=== PATIENT | male | born 1960 | race Caucasian/White ===

== ENCOUNTER 2016-10-12 13:33 | Observation (INO) | payer OTHER ==
[~2016-10-12] VITALS: Ht 175.3 cm; Wt 63.5 kg
[~2016-10-12 13:33] MED LIST: CEPH-38 PO; CEPH500C PO; HYDR-2997 PO; LISI20TA PO
[2016-10-12] MEDS ORDERED: RX-NITROGLYCERIN 0.4 MG TAB BTL 25'S SL ONE (13:43)
[2016-10-12] MEDS ORDERED: ASPIRIN 81 MG CHEW (CHILDREN'S ASA) ONE (13:43)
[2016-10-12] MEDS ORDERED: IBUP-1779 PO (14:04)
[2016-10-12 14:06] LABS: BASOPHILS % (AUTO) 0 % (0-10); EOSINOPHILS # (AUTO) 0.1 10^3/uL (0.0-0.3); EOSINOPHILS % (AUTO) 1 % (0-10); LYMPHOCYTES % (AUTO) 17 % (12-44); MEAN CORPUSCULAR HEMOGLOBIN 31 PG (25-34); MEAN CORPUSCULAR HGB CONC 34 G/DL (32-36); MEAN CORPUSCULAR VOLUME 91 FL (80-99); MEAN PLATELET VOLUME 10.2 FL (7.4-10.4); MONOCYTES # (AUTO) 1.2 X 10^3 (0.0-1.0); MONOCYTES % (AUTO) 10 % (0-12); NEUTROPHILS # (AUTO) 8.5 X 10^3 (1.8-7.8); NEUTROPHILS % (AUTO) 72 % (42-75); PLATELET COUNT 292 10^3/uL (130-400); RED BLOOD COUNT 5.13 10^6/uL (4.35-5.85); RED CELL DISTRIBUTION WIDTH 14.4 % (10.0-14.5); WHITE BLOOD COUNT 11.7 10^3/uL (4.3-11.0)
[2016-10-12 14:20] LABS: ALANINE AMINOTRANSFERASE 35 U/L (0-55); ALBUMIN 4.5 G/DL (3.2-4.5); ANION GAP 11 MMOL/L (5-14); ASPARTATE AMINO TRANSFERASE 39 U/L (5-34); BILIRUBIN,TOTAL 0.9 MG/DL (0.1-1.0); BLOOD UREA NITROGEN 7 MG/DL (7-18); BUN/CREATININE RATIO 7; CALCIUM 9.9 MG/DL (8.5-10.1); CARBON DIOXIDE 26 MMOL/L (21-32); CHLORIDE 99 MMOL/L (98-107); CREATININE SERUM 1.06 MG/DL (0.60-1.30); GFR ESTIMATED > 60; GLUCOSE 90 MG/DL (70-105); POTASSIUM 4.1 MMOL/L (3.6-5.0); SODIUM 136 MMOL/L (135-145); TOTAL PROTEIN 7.9 G/DL (6.4-8.2)
--- NOTE | 2016-10-12 14:22 | ED Chest Pain ---
General Chief Complaint: Chest Pain Stated Complaint: CHEST PAIN Nursing Triage Note: pt reports chest pain starting yesterday with blurred vision, soa, and had to sit down. pt reports today chest pain is still there but all other symtoms have subsided. pt amb into exam room without difficulty Nursing Sepsis Screen: No Definite Risk Source: patient Exam Limitations: no limitations History of Present Illness Time seen by provider: 14:18 Initial Comments The patient is a 56-year-old white male his family is known to me. He was sent from [facility] after he presented there with a chief complaint of chest pain. He was noted to be quite hypertensive with a systolic in the 200s and a did not diastolic in the mid 100s. He has been known to be hypertensive for some time but has not taken his medications in at least 4 years. The pain began yesterday and included shortness of breath and dizziness. The shortness of breath and dizziness have resolved but he continues to have chest pain. He became concerned about this as his father who was also hypertensive and of a ruptured aneurysm some years ago. In addition he smokes. His cholesterol status is not known. Timing/Duration: 24 hours Severity/Quality: moderate Location: central Radiation: no radiation Activities at Onset: none Associated Symptoms: dizziness, shortness of breath Allergies and Home Medications Allergies Coded Allergies: No Known Drug Allergies (Unverified , 03/07/11) Home Medications Ibuprofen 400 Mg Tablet, 400 MG PO Q6H PRN for PAIN, (Reported) Review of Systems Constitutional: see HPI EENTM: Other Respiratory: Other Cardiovascular: Chest Pain, Lightheadedness Genitourinary: No Symptoms Reported Skin: no symptoms reported Psychiatric/Neurological: No Symptoms Reported Endocrine: No Symptoms Reported Past Yznaxxc-Kwcmum-Qxmyqc Hx Patient Social History Alcohol Use: Regular Use Recreational Drug Use: Yes Drug of Choice: Marijuana Smoking Status: Current Everyday Smoker Type Used: Cigarettes 2nd Hand Smoke Exposure: Yes Recent Foreign Travel: No Contact w/Someone Who Travel: No Recent Infectious Disease Expo: No Immunizations Up To Date Tetanus Booster (TDap): More than 5yrs Seasonal Allergies Seasonal Allergies: No Cardiovascular Cardiac Disorders: Hypertension Physical Exam Vital Signs Vital Sign - Last 12Hours 10/12/16 13:38 Temp 99.1 Pulse 93 Resp 20 B/P (MAP) 218/144 Pulse Ox 98 O2 Delivery Room Air Capillary Refill : Less Than 3 Seconds General Appearance: No Apparent Distress, WD/WN HEENT: Normal ENT Inspection Neck: Full Range of Motion, Normal Inspection, Non Tender Respiratory: Chest Non Tender, Lungs Clear, Normal Breath Sounds, No Accessory Muscle Use, No Respiratory Distress Cardiovascular: Regular Rate, Rhythm, No Edema, No Gallop, No JVD, No Murmur, Normal Peripheral Pulses Gastrointestinal: Normal Bowel Sounds, No Organomegaly, No Pulsatile Mass, Non Tender Extremity: Normal Capillary Refill, Normal Inspection, Normal Range of Motion, Non Tender, No Calf Tenderness, No Pedal Edema Neurologic/Psychiatric: Alert, Oriented x3, No Motor/Sensory Deficits, Normal Mood/Affect Skin: Normal Color, Warm/Dry Progress/Results/Core Measures Results/Orders Lab Results Laboratory Tests Test 10/12/16 13:42 Range/Units White Blood Count 11.7 H 4.3-11.0 10^3/uL Red Blood Count 5.13 4.35-5.85 10^6/uL Hemoglobin 16.0 13.3-17.7 G/DL Hematocrit 47 40-54 % Mean Corpuscular Volume 91 80-99 FL Mean Corpuscular Hemoglobin 31 25-34 PG Mean Corpuscular Hemoglobin Concent 34 32-36 G/DL Red Cell Distribution Width 14.4 10.0-14.5 % Platelet Count 292 130-400 10^3/uL Mean Platelet Volume 10.2 7.4-10.4 FL Neutrophils (%) (Auto) 72 42-75 % Lymphocytes (%) (Auto) 17 12-44 % Monocytes (%) (Auto) 10 0-12 % Eosinophils (%) (Auto) 1 0-10 % Basophils (%) (Auto) 0 0-10 % Neutrophils # (Auto) 8.5 H 1.8-7.8 X 10^3 Lymphocytes # (Auto) 2.0 1.0-4.0 X 10^3 Monocytes # (Auto) 1.2 H 0.0-1.0 X 10^3 Eosinophils # (Auto) 0.1 0.0-0.3 10^3/uL Basophils # (Auto) 0.0 0.0-0.1 10^3/uL Sodium Level 136 135-145 MMOL/L Potassium Level 4.1 3.6-5.0 MMOL/L Chloride Level 99 98-107 MMOL/L Carbon Dioxide Level 26 21-32 MMOL/L Anion Gap 11 5-14 MMOL/L Blood Urea Nitrogen 7 7-18 MG/DL Creatinine 1.06 0.60-1.30 MG/DL Estimat Glomerular Filtration Rate > 60 BUN/Creatinine Ratio 7 Glucose Level 90 70-105 MG/DL Calcium Level 9.9 8.5-10.1 MG/DL Total Bilirubin 0.9 0.1-1.0 MG/DL Aspartate Amino Transf (AST/SGOT) 39 H 5-34 U/L Alanine Aminotransferase (ALT/SGPT) 35 0-55 U/L Alkaline Phosphatase 65 40-136 U/L Troponin I < 0.30 <0.30 NG/ML Total Protein 7.9 6.4-8.2 G/DL Albumin 4.5 3.2-4.5 G/DL My Orders Orders - JENNIFER NUNO MD Rx-Nitroglycerin Sl Tabs (Rx-Nitrostat S (10/12/16 13:43) Aspirin Chewable Tablet (Baby Aspirin Ch (10/12/16 13:43) Cbc With Automated Diff (10/12/16 13:59) Comprehensive Metabolic Panel (10/12/16 13:59) Troponin I (10/12/16 13:59) Vital Signs/I&O Vital Sign - Last 12Hours 10/12/16 13:38 Temp 99.1 Pulse 93 Resp 20 B/P (MAP) 218/144 Pulse Ox 98 O2 Delivery Room Air Blood Pressure Mean: 168 Departure Communication Progress Notes 1508 blood pressure remains quite high. Laboratory including troponin is normal. Cardiogram from [facility] was reviewed and shows no acute abnormality. Chest x-ray as interpreted by me shows no clear abnormality either. Given the degree of hypertension in the family history it is recommended that he stay to initiate treatment and to complete cardiac analyzer series. Impression Impression: Primary Impression: accelerated hypertension Disposition: ADMITTED INPATIENT Condition: Stable Decision to Admit Reason: Admit from ER (General) Decision to Admit/Date: Oct 12, 2016 Time/Decision to Admit Time: 15:09 Departure-Patient Inst. Referrals: TIFFANY LITTLE MD (PCP/Family) Primary Care Physician JENNIFER NUNO MD Oct 12, 2016 14:22
[2016-10-12 14:27] LABS: TROPONIN I < 0.30 NG/ML (<0.30)
[2016-10-12] MEDS ORDERED: NITROGLYCERIN SUBLINGUAL 0.4 MG TAB (NITROSTAT) SL ONE (15:15)
[2016-10-12] MEDS ORDERED: meTOprolol TARTRATE 50 MG (LOPRESSOR) TAB PO ONE (15:15)
[2016-10-12] MEDS: meTOprolol TARTRATE 50 MG (LOPRESSOR) TAB PO SCH ×2 (16:36→21:04)
[2016-10-12 16:45] VITALS: BP 197/115
[2016-10-12] MEDS ORDERED: NITROGLYCERIN SUBLINGUAL 0.4 MG TAB (NITROSTAT) SL PRN (16:45)
[2016-10-12 17:00] VITALS: BP 203/122
[2016-10-12] MEDS: NICOTINE 21 MG (NICODERM) PATCH TD SCH (17:52)
[2016-10-12 18:00] VITALS: BP 165/93
[2016-10-12 20:00] VITALS: BP 156/99
[2016-10-13] VITALS: BP 155/94
[2016-10-13 04:00] VITALS: BP 154/92
--- NOTE | 2016-10-13 07:41 | Consultation-Cardiology ---
HPI-Cardiology Cardiology Consultation Date of Consultation 10/13/16 Date of Admission Indication: chest pain, hypertension HPI 56 years old gentleman with history of hypertension the remote past. Patient reported that for the past few days he has been having increasing congestion and shortness of breath with cough. He went to the [facility] and noted to have severe hypertension, he reported 2 episodes of chest pain described as dull in nature and the retrosternal area and left side of his chest associated with feeling lightheaded and dizzy and blacking out. Patient came into the emergency room started on metoprolol and currently laying down in bed feeling better. He had some dyspnea on exertion, he has family history of ruptured aneurysm and he was concerned about his condition. Home Medications & Allergies Allergies: Coded Allergies: No Known Drug Allergies (Unverified , 03/07/11) Home Medication List Reviewed: Yes does not take any medication TCG-Ppivxp-Txxzhm Hx Patient Social History Marital Status: Employed/Student: employed, self-employed Alcohol Use: Regular Use Recreational Drug Use: Yes Drug of Choice: Marijuana Smoking Status: Current Everyday Smoker Type Used: Cigarettes 2nd Hand Smoke Exposure: Yes Recent Foreign Travel: No Recent Infectious Disease Expo: No Physical Abuse Screen: No Sexual Abuse: No Immunizations Up To Date Tetanus Booster (TDap): More than 5yrs Past Medical History hypertension Family Medical History Family History: Cardiovascular disease 19 FATHER Hypertension 19 FATHER 19 MOTHER Constitutional: see HPI, dizziness, malaise EENTM: no symptoms reported, see HPI Respiratory: see HPI, cough, dyspnea on exertion, No hemoptysis, No orthopnea, phlegm, short of breath, No stridor, No wheezing, No other Cardiovascular: see HPI, chest pain, No edema, No Hx of Intervention, No palpitations, No syncope, No vascular heart diseas, No other Gastrointestinal: no symptoms reported, see HPI Genitourinary: no symptoms reported, see HPI Musculoskeletal: no symptoms reported, see HPI Skin: no symptoms reported, see HPI Psychiatric/Neurological: No Symptoms Reported, See HPI Reviewed Test Results Reviewed Test Results Lab Laboratory Tests Test 10/12/16 13:42 10/12/16 19:31 Range/Units White Blood Count 11.7 H 4.3-11.0 10^3/uL Red Blood Count 5.13 4.35-5.85 10^6/uL Hemoglobin 16.0 13.3-17.7 G/DL Hematocrit 47 40-54 % Mean Corpuscular Volume 91 80-99 FL Mean Corpuscular Hemoglobin 31 25-34 PG Mean Corpuscular Hemoglobin Concent 34 32-36 G/DL Red Cell Distribution Width 14.4 10.0-14.5 % Platelet Count 292 130-400 10^3/uL Mean Platelet Volume 10.2 7.4-10.4 FL Neutrophils (%) (Auto) 72 42-75 % Lymphocytes (%) (Auto) 17 12-44 % Monocytes (%) (Auto) 10 0-12 % Eosinophils (%) (Auto) 1 0-10 % Basophils (%) (Auto) 0 0-10 % Neutrophils # (Auto) 8.5 H 1.8-7.8 X 10^3 Lymphocytes # (Auto) 2.0 1.0-4.0 X 10^3 Monocytes # (Auto) 1.2 H 0.0-1.0 X 10^3 Eosinophils # (Auto) 0.1 0.0-0.3 10^3/uL Basophils # (Auto) 0.0 0.0-0.1 10^3/uL Sodium Level 136 135-145 MMOL/L Potassium Level 4.1 3.6-5.0 MMOL/L Chloride Level 99 98-107 MMOL/L Carbon Dioxide Level 26 21-32 MMOL/L Anion Gap 11 5-14 MMOL/L Blood Urea Nitrogen 7 7-18 MG/DL Creatinine 1.06 0.60-1.30 MG/DL Estimat Glomerular Filtration Rate > 60 BUN/Creatinine Ratio 7 Glucose Level 90 70-105 MG/DL Calcium Level 9.9 8.5-10.1 MG/DL Total Bilirubin 0.9 0.1-1.0 MG/DL Aspartate Amino Transf (AST/SGOT) 39 H 5-34 U/L Alanine Aminotransferase (ALT/SGPT) 35 0-55 U/L Alkaline Phosphatase 65 40-136 U/L Troponin I < 0.30 < 0.30 <0.30 NG/ML Total Protein 7.9 6.4-8.2 G/DL Albumin 4.5 3.2-4.5 G/DL Physical Exam Vital Signs Vital Sign - Last 12Hours 10/12/16 10/12/16 13:38 16:23 Temp 99.1 Pulse 93 Resp 20 B/P (MAP) 218/144 Pulse Ox 98 O2 Delivery Room Air O2 Flow Rate 2.00 Capillary Refill : Less Than 3 Seconds General Appearance: No Apparent Distress, WD/WN Eyes: Bilateral Eye EOMI, Bilateral Eye Normal Inspection, Bilateral Eye PERRL HEENT: PERRL/EOMI, TMs Normal, Normal ENT Inspection, Pharynx Normal Neck: Full Range of Motion, Normal Inspection, Non Tender, Supple, Carotid Bruit Respiratory: Chest Non Tender, Normal Breath Sounds, No Accessory Muscle Use, No Respiratory Distress, Crackles, Wheezing Cardiovascular: Regular Rate, Rhythm, No Edema, No Gallop, No JVD, No Murmur, Normal Peripheral Pulses Gastrointestinal: Normal Bowel Sounds, No Organomegaly, No Pulsatile Mass, Non Tender, Soft Back: Normal Inspection, No CVA Tenderness, No Vertebral Tenderness Extremity: Normal Capillary Refill, Normal Inspection, Normal Range of Motion, Non Tender, No Calf Tenderness, No Pedal Edema Neurologic/Psychiatric: Alert, Oriented x3, No Motor/Sensory Deficits, Normal Mood/Affect Skin: Normal Color, Warm/Dry Lymphatic: No Adenopathy A/P-Cardiology Admission Diagnosis Chest pain nonspecific etiology Shortness of breath Hypertensive urgency Reactive airway disease Assessment/Plan Chest pain nonspecific etiology, I did not see any EKG in the chart, I will evaluate EKG, cardiac enzymes has been normal, probably his pain secondary to hypertension. Blood pressure is slightly better. Started on Lopressor and I will add Norvasc. Will require workup which will be done as an outpatient. Shortness of breath for the last week, patient have active wheezing, I'll proceed with initiating him on bronchodilator. Discussed in length about smoking cessation. I will evaluate chest x-ray Hypertensive urgency, blood pressure is better and he is feeling better, had hypertensive encephalopathy yesterday and the day before with blood pressure over 200 systolic and over 100 diastolic, started on Lopressor 50 mg twice daily in the emergency room, I will add Norvasc 5 mg daily, evaluate echocardiogram, I recommend monitoring his blood pressure as an outpatient. Tobaccoism, educated in length on smoking cessation. History of marijuana use. Educated on avoiding illicit drugs. Family history of aneurysm Clinical Quality Measures AMI/AHF: ASA po Prior to arrival: No DVT/VTE Risk/Contraindication: Risk Factor Score Per Nursin RFS Level Per Nursing on Admit: 2=Moderate JEF ANAND MD Oct 13, 2016 07:41
[2016-10-13] MEDS ORDERED: RT-ALBUTEROL/IPRATROPIUM 3 ML (DUONEB) VIAL IH SCH (07:45)
[2016-10-13 07:51] VITALS: BP 159/100
[2016-10-13] MEDS: meTOprolol TARTRATE 50 MG (LOPRESSOR) TAB PO SCH (08:21)
[2016-10-13] MEDS: NICOTINE 21 MG (NICODERM) PATCH TD SCH (08:22)
--- NOTE | 2016-10-13 08:41 | Short Stay Summary-Hospitalist ---
HPI History of Present Illness: HPI/Chief Complaint 56yoM who presented to the ED yesterday for HTN. He had associated symptoms of CP, dizziness, and confusion. Admitted for HTN Emergency with BP 218/144. Source: patient, family, RN/MD, RN notes reviewed Exam Limitations: no limitations Date Seen 10/13/16 Attending Physician Rhianna Corey DO PCP No,Local Physician Referring Physician Date of Admission Oct 12, 2016 at 15:21 Home Medications & Allergies Home Medications Reviewed patient Home Medication Reconciliation Form Allergies Allergies Coded Allergies No Known Drug Allergies (Unverified03/07/11) Past Qlczhqk-Eheyaz-Dhovmp Hx Patient Social History Marrital Status: Employed/Student: employed, self-employed Alcohol Use: Regular Use Recreational Drug Use: Yes Drug of Choice: Marijuana Smoking Status: Current Everyday Smoker Cigaretts per day: 30 Type Used: Cigarettes 2nd Hand Smoke Exposure: Yes Physical Abuse Screen: No Sexual Abuse: No Recent Foreign Travel: No Contact w/other who traveled: No Recent Infectious Disease Expo: No Immunizations Up To Date Tetanus Booster (TDap): More than 5yrs Seasonal Allergies Seasonal Allergies: Yes Surgeries HX Surgeries: No Respiratory Hx Respiratory Disorders: No Cardiovascular Cardiac Disorders: Hypertension Neurological Hx Neurological Disorders: No Genitourinary Hx Genitourinary Disorders: No Gastrointestinal Hx Gastrointestinal Disorders: No HEENT HX ENT Disorders: No Cancer Hx Cancer: No Family Medical History Family Hx: Cardiovascular disease 19 FATHER Hypertension 19 FATHER 19 MOTHER Review of Systems Constitutional: no symptoms reported EENTM: nose congestion Respiratory: short of breath, wheezing Cardiovascular: chest pain Gastrointestinal: no symptoms reported Genitourinary: no symptoms reported Musculoskeletal: no symptoms reported Skin: no symptoms reported Psychiatric/Neurological: Other (blacking out yesterday) Physical Exam Physical Exam Vital Signs Vital Sign - Last 12Hours 10/12/16 10/12/16 13:38 16:23 Temp 99.1 Pulse 93 Resp 20 B/P (MAP) 218/144 Pulse Ox 98 O2 Delivery Room Air O2 Flow Rate 2.00 Capillary Refill : Less Than 3 Seconds General Appearance: No Apparent Distress, WD/WN, Thin Eyes: Bilateral Eye PERRL HEENT: PERRL/EOMI, Other (hearing grossly normal) Neck: Full Range of Motion, Supple, Other (No JVD) Respiratory: Wheezing Cardiovascular: Regular Rate, Rhythm, No Edema, No Murmur Gastrointestinal: Normal Bowel Sounds, Non Tender, Soft Rectal: Deferred Extremity: Non Tender, No Pedal Edema Neurologic/Psychiatric: Alert, Oriented x3 Skin: Other (hair loss below calves) Results Results/Procedures Lab Laboratory Tests 10/12/16 13:42 Short Stay Diagnosis Discharge Diagnosis-Short Stay Admission Diagnosis HTN Emergency Final Discharge Diagnosis HTN Emergency Conclusion Plan HTN Emergency - Emergency resolved and BP under better control on dual agents - Given voltage criteria for LVH ekg, echo ordered - Pending results will DC home - lopressor 50mg BID and Amlodipine 5mg daily - Switch to JABIER if CHF found on echo for BB and JABIER - Needs 81mg ASA as well Wheezing - No hypoxia, but likely has baseline COPD given smoking history - On no inhalers as outpatient, will start on Albuterol prn - Advised follow up, will need Spirometry. Tobaccoism - Recommended cessation - Nicotine patch Dispo: If echo normal, DC home today. Advised strongly on need to follow up with Dr. Beverly and to establish with PCP. States he will follow with the health department. Will need abd usg to screen for AAA given family history and smoking history. Fortunato Marino MD Clinical Quality Measures AMI/AHF: ASA po Prior to arrival: No DVT/VTE Risk/Contraindication: Risk Factor Score Per Nursin RFS Level Per Nursing on Admit: 2=Moderate FORTUNATO MARINO MD Oct 13, 2016 08:41
[2016-10-13] MEDS ORDERED: NICOTINE PATCH REMOVAL TP SCH (09:00)
[2016-10-13] MEDS ORDERED: amLODIPine 5 MG (NORVASC) TAB PO SCH (09:00)
[2016-10-13] MEDS ORDERED: IPRA3AMP IH (09:23)
[2016-10-13] MEDS ORDERED: METO50TA2 PO (09:23)
[2016-10-13] MEDS ORDERED: AMLO5TAB2 PO (09:23)
--- NOTE | 2016-10-13 09:25 | Discharge Inst-Simple/Standard ---
Discharge Inst-Standard Patient Instructions/Follow Up Plan of Care/Instructions/FU: Griselda establish with a primary care doctor and follow up with 1-2 weeks of this hospital stay. It is also important to follow up with Dr. Beverly after this stay. Lastly continue to work on efforts to quit smoking. Activity as Tolerated: Yes Discharge Diet: Low Sodium Diet, Cardiac Diet Return to The Hospital For: Recurrent chest pain, syncope, confusion. Planned Outpatient Orders/Ref. Pneu Vac Indicated: Yes FORTUNATO KLINE MD Oct 13, 2016 09:25
[2016-10-13] MEDS ORDERED: ASPI-586 PO (09:27)
--- NOTE | 2016-10-13 10:04 | Diagnostic Imaging Report ---
INDICATION: Chest pain. PA and lateral views show the lungs to be well-aerated. The heart is upper limits of normal. The pulmonary vasculature is normal. There are no infiltrates present. There does appear to be mild blunting of left costophrenic angle suggesting a small left basilar effusion. Right costophrenic angle is sharp. There is no hilar adenopathy. No pneumothorax. There is question of a nondisplaced fracture of the left 10th rib laterally. IMPRESSION: 1. Heart size upper limits of normal. 2. Small left basilar pleural effusion. 3. Question of nondisplaced left 10th rib fracture. Clinical correlation. Dictated by: Dictated on workstation # [id number]
[2016-10-13 12:00] VITALS: BP 173/101
[2016-10-13 13:28] VITALS: BP 149/90
--- NOTE | 2016-10-13 17:30 | ECHOCARDIOGRAPHY REPORT ---
DATE OF SERVICE: 10/13/2016 PROCEDURE: TWO-DIMENSIONALECHOCARDIOGRAM REFERRING PHYSICIAN: Rhianna Corey DO INDICATION: Chest pain. MEASUREMENTS: LVID end diastolic 4.9. IVS thickness 1.1. LVPW thickness 1.1. Left atrial diameter 3.7. Ejection fraction 50%. FINDINGS: 1. Technical quality is good. 2. The left ventricle is normal in size with mild left ventricular hypertrophy noted diffusely. Systolic function appeared to be normal. Estimated ejection fraction is 50%. Subtle hypokinesia at the basal inferior wall. 3. The left atrium is normal in size. No clot or thrombus were seen within the left atrium. 4. The right atrium and right ventricle are normal in size. No clot or thrombus were seen within the right side. 5. Mitral valve is normal in morphology with mild mitral regurgitation noted by carotid Doppler flow. No mitral valve prolapse. No mitral valve stenosis. Doppler across the mitral valve showed EA reversal, which is suggestive of diastolic dysfunction. 6. Aortic valve is functioning normally. The leaflets were not well visualized. There is no significant aortic valve stenosis or regurgitation seen. 7. Tricuspid valve is normal in morphology with trace tricuspid regurgitation noted by color Doppler flow. Doppler across the tricuspid valve estimated pulmonary artery pressure of 22 plus right atrial pressure. 8. Pulmonic valve is functioning normally. 9. No pericardial effusion. CONCLUSION: 1. Mild left ventricular hypertrophy noted diffusely with normal systolic function, subtle hypokinesia at the base of the inferior wall. Systolic function is preserved. Estimated ejection fraction is 50%. Diastolic dysfunction is suggested by Doppler. 2. Mild mitral regurgitation. 3. Trace tricuspid regurgitation. 4. Estimated pulmonary artery pressure of 30 mmHg. Job ID: [id number] DocumentID: [id number] Dictated Date: 10/13/2016 11:44:10 Lead Assembler Date: 10/13/2016 13:34:59 Dictated By: JEF ANAND MD
== END 2016-10-13 09:33 | disposition home or self-care (01) ==
LOC: EDUNIT# 13:33 → ER 13:36 → ICU 15:21 → UNDOADMOB 15:21 → ICU 15:31 → 4TH 15:31 → ICU 16:30 → UNDODISOB 10-13 13:32
PROVIDERS: ADMIT Internal Medicine; ATTEND Internal Medicine
DX: R07.9 Chest pain, unspecified (principal); I10 Essential (primary) hypertension; F17.210 Nicotine dependence, cigarettes, uncomplicated; I16.0 Hypertensive urgency; I67.4 Hypertensive encephalopathy; R06.2 Wheezing; R55 Syncope and collapse; R41.0 Disorientation, unspecified
CPT/HCPCS: 36415; 71020; 80053; 84484; 85025; 93005; 93306; 94640; 94760; G0378

== ENCOUNTER → 2017-05-22 | Outpatient (CLI) | payer SELFPAY ==
[~2017-05-22] MED LIST changes: +AMLO5TAB2 PO; +ASPI-586 PO; +CATHETER FLUSH 10 ML SYR IV PRN; +IBUP-1779 PO; +IPRA3AMP IH; +METO50TA15 PO
[2017-05-22 09:22] VITALS: BP 214/108
[2017-05-22 09:27] VITALS: BP 210/97
[2017-05-22 09:31] VITALS: BP 201/111
--- NOTE | 2017-05-22 22:33 | STRESS TEST ---
DATE OF SERVICE: 05/22/2017 EXERCISE MYOVIEW STRESS TEST REPORT Baseline heart rate is 60. Baseline blood pressure 153/93. Baseline EKG is sinus rhythm with no ischemic changes. SUMMARY: The patient was injected with 10.67 mCi of technetium-99 Myoview and the resting images were obtained. Then, the patient started exercising with a baseline heart rate, blood pressure and EKG mentioned above. He was able to exercise for a total of 4 minutes 30 seconds on standard Aman protocol. With peak exercise level, EKG was showing nondiagnostic changes in leads II, III, aVF, V4 and V5, blood pressure was 214/108. During recovery, heart rate and blood pressure returned to baseline. EKG returned to baseline. The resting and stress images were reviewed and compared in the short axis, horizontal long axis and vertical long axis views. Review of the images showed diaphragmatic attenuation with fixed defect involving the whole inferior wall and inferoseptum with subtle reversibility. SSS is 12. SDS 2. TID value 1.09. On the gated images, the left ventricle appeared to be dilated with diffuse left ventricular hypokinesia more pronounced at the inferior wall. Calculated ejection fraction 31%. CONCLUSION: 1. Fair exercise tolerance. A total of 4 minutes 30 seconds on standard Aman protocol, total of 6.4 METS achieving 96% of maximum expected heart rate. 2. Baseline hypertension with severe hypertensive response to exercise returned to baseline during recovery. 3. Diaphragmatic attenuation with fixed defect involving the whole inferior wall and inferoseptum with mild joan-infarct ischemia. 4. Prominent left ventricle with diffuse left ventricular hypokinesia, more pronounced at the inferior wall and inferolateral wall and inferoseptum. Calculated ejection fraction 31%. Job ID: [id number] DocumentID: [id number] Dictated Date: 05/22/2017 16:01:34 Marketing Communication Manager Date: 05/22/2017 19:02:26 Dictated By: JEF ANAND MD
== END ==
LOC: CARD 07:14
PROVIDERS: ATTEND Internal Medicine Cardiovascular Disease
DX: R07.9 Chest pain, unspecified (principal)
CPT/HCPCS: 78452; 93017

== ENCOUNTER 2017-06-19 06:35 | Day surgery (SDC) | payer SELFPAY ==
[~2017-06-19] VITALS: Ht 175.3 cm; Wt 65.8 kg
[2017-06-19] VITALS (11 sets, daily range): BP systolic 163–192; BP diastolic 90–113
[~2017-06-19 06:35] MED LIST changes: -CATHETER FLUSH 10 ML SYR IV PRN
--- OUTSIDE RECORDS SUMMARY | 2017-06-19 06:40 | XMS REPORT ---
Author Author SAURABH SIMPSON Organization [facility] Address [address] [place] [address] Care Team Providers Care Repair Table Operator Name Role Phone SAURABH SIMPSON Unavailable PROBLEMS Type Condition ICD9-CM Code QZX03-[id number] Code Onset Dates Condition Status SNOMED Code Problem Tobacco abuse counseling Z71.6 Active 353602669 Problem Tobacco abuse Z72.0 Active 343729932 Problem Essential hypertension I10 Active 54155983 Problem Coronary artery disease involving [place] coronary artery of [place] heart without angina pectoris I25.10 Active 7987800990175 Problem ETOH abuse F10.10 Active 79178714 ALLERGIES No Known Allergies SOCIAL HISTORY Never Assessed PLAN OF CARE Activity Details Follow Up prn Reason: VITAL SIGNS Height 69 in 2016-10-12 Weight 135.6 lbs 2016-10-12 Temperature 98.6 degrees Fahrenheit 2016-10-12 Heart Rate 86 bpm 2016-10-12 Respiratory Rate 22 2016-10-12 BMI 20.02 kg/m2 2016-10-12 Blood pressure systolic 202 mmHg 2016-10-12 Blood pressure diastolic 128 mmHg 2016-10-12 MEDICATIONS Medication Instructions Dosage Frequency Start Date End Date Duration Status Ibuprofen 800 MG Orally Three times a day 1 tablet with food or milk 8h Active RESULTS Name Result Date Reference Range Xray : Chest (IN HOUSE) 2016-10-12 PROCEDURES Procedure Date Ordered Result Body Site EKG, TRACING (IN-HOUSE) 2016-10-12 N/A CHEST X-RAY October 12, 2016 ELECTROCARDIOGRAM, TRACING October 12, 2016 IMMUNIZATIONS No Known Immunizations MEDICAL (GENERAL) HISTORY Type Description Date Medical History hypertension Medical History Myocardial Infarction Hospitalization History ICU [facility] for hypertension 10/12/2016
--- OUTSIDE RECORDS SUMMARY | 2017-06-19 06:40 | XMS REPORT | Continuity of Care Document ---
Author Author [facility] Address Unknown Phone Unavailable Allergies There is no data. Medications There is no data. Problems Date Dx Coded Attending Type Code Diagnosis Diagnosed By 03/20/2012 305.1 TOBACCO ABUSE 03/20/2012 401.1 HYPERTENSION, BENIGN ESSENTIAL 03/20/2012 ZAHIRA JEAN DDS N 305.1 TOBACCO ABUSE 03/20/2012 ZAHIRA JEAN DDS N 401.1 HYPERTENSION, BENIGN ESSENTIAL 06/02/2012 ZAHIRA JEAN DDS N 522.5 PERIAPICAL ABSCESS WITHOUT SINUS Procedures There is no data. Results There is no data. Encounters ACCT No. Visit Date/Time Discharge Status Pt. Type Provider Facility Loc./Unit Complaint [id number] 06/03/2012 13:54:00 06/03/2012 23:59:59 [facility] Outpatient ZHAIRA JEAN DDS N [id number] 03/20/2012 08:23:00 03/20/2012 23:59:59 [facility] Outpatient
[2017-06-19] MEDS ORDERED: LIDOCAINE 1% INJ 50 ML (XYLOCAINE) VIAL ONE (06:48)
[2017-06-19] MEDS ORDERED: HEParin (CATH LAB) 2,000 ML IV ONE (06:48)
[2017-06-19] MEDS ORDERED: NS IV 1000 ML 1,000 ML IV SCH ×2 (06:57→08:45)
[2017-06-19] MEDS ORDERED: LISI-556 PO (07:13)
[2017-06-19] MEDS ORDERED: ASPI-983 PO (07:13)
[2017-06-19] MEDS ORDERED: METO-333 PO (07:13)
[2017-06-19] MEDS ORDERED: AMLO10TA2 PO (07:13)
[2017-06-19 07:14] LABS: BILIRUBIN,URINE NEGATIVE (NEGATIVE); CLARITY,URINE CLEAR; COLOR,URINE YELLOW; GLUCOSE, URINE (UA) NEGATIVE (NEGATIVE); KETONES,URINE NEGATIVE (NEGATIVE); LEUKOCYTE ESTERASE ,URINE 1+ (NEGATIVE); NITRITE,URINE NEGATIVE (NEGATIVE); PH,URINE 6 (5-9); PROTEIN,URINE NEGATIVE (NEGATIVE); UROBILINOGEN,URINE NORMAL (NORMAL)
[2017-06-19 07:14] LABS: MEAN PLATELET VOLUME 10.3 FL (7.4-10.4); RED BLOOD COUNT 4.89 10^6/uL (4.35-5.85); RED CELL DISTRIBUTION WIDTH 14.2 % (10.0-14.5); WHITE BLOOD COUNT 10.9 10^3/uL (4.3-11.0)
[2017-06-19] MEDS ORDERED: LISI10TA2 PO (07:14)
[2017-06-19 07:22] LABS: BACTERIA,URINE NEGATIVE /HPF
[2017-06-19 07:25] LABS: PROTHROMBIN TIME PATIENT 13.1 SEC (12.2-14.7)
[2017-06-19 07:35] LABS: ALANINE AMINOTRANSFERASE 14 U/L (0-55); ALBUMIN 4.1 GM/DL (3.2-4.5); ALKALINE PHOSPHATASE 70 U/L (40-136); BILIRUBIN,TOTAL 0.6 MG/DL (0.1-1.0); BUN/CREATININE RATIO 12; CALCIUM 9.6 MG/DL (8.5-10.1); CARBON DIOXIDE 22 MMOL/L (21-32); CHLORIDE 106 MMOL/L (98-107); CHOLESTEROL 168 MG/DL (< 200); CREATININE SERUM 0.98 MG/DL (0.60-1.30); GFR ESTIMATED > 60; GLUCOSE 98 MG/DL (70-105); HDL CHOLESTEROL 59 MG/DL (40-60); POTASSIUM 4.2 MMOL/L (3.6-5.0); SODIUM 140 MMOL/L (135-145); TOTAL PROTEIN 7.8 GM/DL (6.4-8.2); TRIGLYCERIDES 63 MG/DL (<150); VLDL CHOLESTEROL 13 MG/DL (5-40)
[2017-06-19] MEDS ORDERED: INFLUENZA TRIvalent 2017-2018 0.5 ML/45 MCG SYR IM ONE (07:45)
[2017-06-19] MEDS ORDERED: fentaNYL INJECTION 100 MCG/2 ML AMP ONE (07:56)
[2017-06-19] MEDS ORDERED: MIDAZOLAM 5 MG/5 ML (VERSED) VIAL ONE (07:56)
--- NOTE | 2017-06-19 08:02 | Cardiac Procedure Note-CS/ASA ---
Pre-Procedure Note Pre-Op Procedure Note H&P Reviewed The H&P was reviewed, patient examined and no changes noted. Date H&P Reviewed: Jun 19, 2017 Time H&P Reviewed: 08:02 Conscious Sedation Pre-Proced Time Reviewed: 08:02 ASA Class: 3 Airway Mallampati Classification: ([place] appropriate class) I. II. III, IV Lungs Heart ASA score ASA 1: a normal healthy patient ASA 2: a patient with a mild systemic disease (mid diabetes, controlled hypertension, obesity x ASA 3: a patient with a severe systemic disease that limits activity (angina , COPD, prior Myocardial infarction) ASA 4: a patient with an incapacitating disease that is a constant threat to life (CHF, renal failure) ASA 5: a moribund patient not expected to survive 24 hrs. (ruptured aneurysm) ASA 6: a declared brain patient whose organs are being harvested. For emergent operations, add the letter E after the classification Grade 3 Sedation Plan: Analgesia, Amnesia, Plan communicated to team members, Discussed options with patient/fam, Discussed risks with patient/fam Note The patient is an appropriate candidate to undergo the planned procedure, sedation, and anesthesia. The patient immediately re-assessed prior to indication. JEF ANAND MD Jun 19, 2017 08:02
--- NOTE | 2017-06-19 08:03 | Diagnostic Imaging Report ---
INDICATION: Coronary artery disease FINDINGS: The lungs are hyperexpanded but clear. The heart size and vascularity are within normal limits. Benign calcified hilar and parenchymal granulomatous residua is stable. No failure, effusion or pneumothorax. IMPRESSION: Stable chest. Dictated by: Dictated on workstation # [id number]
[2017-06-19] MEDS ORDERED: PATIENT MAY USE OWN MEDS, ALL PO SCH (08:45)
--- NOTE | 2017-06-19 08:49 | Discharge Inst-Post CATH ---
Discharge Inst-CATH Post Cardiac Cath D/C Inst Follow Up/Plan Appointment with Dr. Beverly's office in 2-4 weeks CARDIAC CATH DISCHARGE INSTRUCTIONS *Hold Metformin for 48 hours post heart cath. ACTIVITY * Go Home directly and rest. * Limit activity of the leg (or wrist if it was used) for 7 days including aerobics, swimming, jogging, bicycling, etc. * Restrict stair-climbing for 7 days if possible, if not, climb up with your non -cath leg, then bring together on the same step. * Avoid lifting, pushing, pulling or excessive movement of the affected extremity for 7 days. * Customary sexual activity may be resumed after 2 days-use caution not to use a position that strains or causes pain to the affected extremity. * No driving for 24 hours. * NO SMOKING. * Avoid straining for bowel movements for 7 days. * Gentle walking on level ground is allowed. * Returning to work will depend on the type of procedure and the results. Your doctor will discuss this with you. CALL YOUR DOCTOR FOR ANY OF THE FOLLOWING: *If bleeding from the puncture site occurs- Apply gentle pressure to site with clean cloth and call your doctor or EMS. * If a knot or lump forms under the skin, increases in size, or causes pain. * If bruising appears to be worsening or moving further down your leg instead of disappearing. * Temperature above 101 F. CARE OF YOUR GROIN INCISION; * Bruising or purple discoloration of the skin near the puncture site is common. * You may shower only, no bathtub bathing for 5 days. Be careful to avoid slipping as your leg may feel stiff. * If a closure device was used on your femoral artery, please see the attached guide regarding care of the device and your leg. * REMOVE the dressing from your groin the next day after your procedure in the shower. CARE OF YOUR WRIST INCISION; * Bruising or purple discoloration of the skin near the puncture site is common. * You may shower. * DO NOT submerge wrist. * Remove dressing in 24 hours. JEF BEVERLY MD Jun 19, 2017 08:49
--- NOTE | 2017-06-19 08:54 | Cardiac Cath Report ---
Cardiac Cath Report Physician (s)/Child Support Specialist (s) Physician JEF ANAND MD Pre-Procedure Diagnosis Pre-Procedure Diagnosis: Coronary artery disease Post-Procedure Note Procedure Start Date: Jun 19, 2017 Name of Procedure: Left heart catheterization. 98952 Left ventriculogram Aortic arch angiogram [id number] Findings/Procedure Note PROCEDURE NOTE: After explaining the procedure to the patient, all pros and cons were explained, all questions were answered. The patient signed the consent and then she was placed on the cardiac catheterization laboratory. The patient was placed on the cardiac catheterization laboratory. Groin was prepped SL fashion local anesthesia was used. Sheath placed in the artery. Amado right and left catheter were used to access the coronary system. Pigtail was used to access the left ventricular cavity. Left ventriculogram was done Aortic arch angiogram was done At the end of the procedure the sheath was removed. Closure device was used FINDINGS: Hemodynamics LV 150/17, end-diastolic pressure of 17 Aorta 165/82 mean of 115 ANATOMY: Left Main is calcified artery with 40-50 percent stenosis nonobstructive disease Left Anterior Descending has mild disease proximally, nonobstructive disease Left Circumflex has 40 percent stenosis at the midportion, at the bifurcation after the obtuse marginal branch there is an area of 50-60 percent stenosis. Right Coronory Artery is dominant artery, totally occluded proximally, getting filled by collaterals from the left system LV Gram is prominent with inferior wall hypokinesia estimated ejection fraction 35 percent Aorta evaluation done with aortic arch angiogram which showed hypertensive changes, mild calcification, origin of the great neck vessels appeared mildly calcified with no obstructive disease CONCLUSION: 1. Ischemic cardiomyopathy with inferior wall hypokinesia to akinesia, estimated ejection fraction 35 percent 2. Total occlusion of the proximal right coronary artery getting filled by collaterals from the left system 3. Calcified left main with 40 percent stenosis, 50-60 percent stenosis at the distal circumflex artery at the bifurcation after the origin of the obtuse marginal branch, mild disease in the LAD 4. Hypertensive changes in the thoracic aorta and aortic arch, no dissection or aneurysm DISCUSSION AND RECOMMENDATION: I will evaluate viability study to the inferior wall, continue to maximize medical therapy Anesthesia Type: Conscious Sedation Estimated blood loss (mL): 10 ml Contrast Amount: 71 ml Total Radiation Dose: 276 mGy Post-Procedure Diagnosis Post-operative diagnosis: Coronary artery disease Congestive heart failure, chronic compensated left ventricular systolic dysfunction, ischemic cardiomyopathy Hypertension Tobaccoism JEF ANAND MD Jun 19, 2017 08:54
[2017-06-19] MEDS ORDERED: lisINopril 5 MG (PRINIVIL) TABLET PO NR (09:45)
[2017-06-19] MEDS ORDERED: amLODIPine 10 MG (NORVASC) TAB PO NR (11:15)
[2017-06-20] MEDS ORDERED: amLODIPine 10 MG (NORVASC) TAB PO SCH (09:00)
== END 2017-06-19 13:25 | disposition home or self-care (01) ==
LOC: CATH 06:35 → SURG 09:07 → CATH 13:25
PROVIDERS: ATTEND Internal Medicine Cardiovascular Disease
DX: I25.10 Atherosclerotic heart disease of native coronary artery without angina pectoris (principal); I25.82 Chronic total occlusion of coronary artery; I11.0 Hypertensive heart disease with heart failure; I50.22 Chronic systolic (congestive) heart failure; I25.5 Ischemic cardiomyopathy; I08.1 Rheumatic disorders of both mitral and tricuspid valves; F17.210 Nicotine dependence, cigarettes, uncomplicated; Z79.82 Long term (current) use of aspirin; Z79.899 Other long term (current) drug therapy
CPT/HCPCS: 36221; 36415; 71045; 80053; 80061; 81000; 85027; 85610; 85730; 87081; 93458

== ENCOUNTER 2021-01-18 16:55 | Emergency (ER) | payer SELFPAY ==
[~2021-01-18] VITALS: Ht 175.3 cm; Wt 59.9 kg
[~2021-01-18 16:55] MED LIST changes: +AMLO-250 PO; +AMLO-251 PO; -AMLO5TAB2 PO; +ASPI-1238 PO; -IPRA3AMP IH; +IPRA3AMP31 IH; +LISI-729 PO; +LISI10TA25 PO; +METO-333 PO
[2021-01-18] MEDS ORDERED: RT-ALBUTEROL/IPRATROPIUM 3 ML (DUONEB) VIAL INH ONE (17:45)
[2021-01-18 17:53] LABS: BASOPHILS % (AUTO) 0 % (0-10); EOSINOPHILS % (AUTO) 0 % (0-10); HEMATOCRIT 46 % (40-54); HEMOGLOBIN 16.3 g/dL (13.3-17.7); LYMPHOCYTES # (AUTO) 1.4 10^3/uL (1.0-4.0); LYMPHOCYTES % (AUTO) 13 % (12-44); MEAN CORPUSCULAR HEMOGLOBIN 31 pg (25-34); MEAN CORPUSCULAR HGB CONC 36 g/dL (32-36); MEAN CORPUSCULAR VOLUME 87 fL (80-99); MEAN PLATELET VOLUME 9.9 fL (9.0-12.2); MONOCYTES # (AUTO) 0.9 10^3/uL (0.0-1.0); MONOCYTES % (AUTO) 8 % (0-12); NEUTROPHILS # (AUTO) 7.9 10^3/uL (1.8-7.8); NEUTROPHILS % (AUTO) 78 % (42-75); PLATELET COUNT 201 10^3/uL (130-400); WHITE BLOOD COUNT 10.2 10^3/uL (4.3-11.0)
--- NOTE | 2021-01-18 17:56 | ED General ---
General Chief Complaint: General Problems/Pain Stated Complaint: HEAD INJURY, SIDE PAIN, CONGESTION Nursing Triage Note: PT AMB TO RM 9 WITH MULTIPLE COMPLAINTS. PT REPORTS THAT HE HAS BEEN SOB X1 WEEK. PT ALSO REPORTS AT 1000 THIS MORNING HE WAS GOING ABOUT HIS DAY USUAL WHEN HE PASSED OUT, FELL TO HIS KNEES, AND THEN FELL THE REST OF THE WAY HITTING HIS HEAD. PT HAS ABRASIONS ON HIS LEFT KNEE, LEFT SHOULDER, LEFT EYEBROW, AND NOW C/O LEFT SIDED ABD PAIN FROM HIS FALL. Source of Information: Patient Exam Limitations: No Limitations (SUHAIL ALCAZAR STUDENT) History of Present Illness Date Seen by Provider: Jan 18, 2021 Time Seen by Provider: 17:20 Initial Comments Pt presents to ED via private conveyance with complaints of problems breathing and L rib pain. He states that his trouble breathing started last week when working outside. He states that he fell earlier today but doesnt remember the event beyond going down onto his knee. Denies prior similar events. He has complaints of L side rib pain 11/24, has taken 400mg Ibuprofen with minimal reli ef. He also takes Amlodipine and Lisinopril for hypertension. He denies fevers, chills, chest pain, nausea, vomiting. Timing/Duration: 1-3 Hours Severity: Moderate Modifying Factors: improves with Movement Associated Systoms: Chest Pain (L rib pain); No Fever/Chills, No Nausea/Vomiting (SUHAIL ALCAZAR STUDENT) Initial Comments I have also interviewed and examined this patient. He has been struggling with shortness of breath for a couple of weeks. He denies any chest pain. Today he had an episode of shortness of breath and ultimately had a syncopal episode resulting in striking his head and left chest on the concrete. He has a contusion on his left brow and left chest wall pain and tenderness. Vital signs are stable. He has no known health problems aside from his hypertension. He does smoke about a pack of cigarettes per day and drinks about a sixpack of beer per day. He does not have any known cardiopulmonary problems. His Covid screen was negative by the time of my interview. (TOMMY VASQUEZ MD) Allergies and Home Medications Allergies Coded Allergies: No Known Drug Allergies (Unverified , 03/07/11) Home Medications Amlodipine Besylate 10 Mg Tablet, 10 MG PO DAILY, (Reported) Aspirin 81 Mg Tablet.dr, 81 MG PO DAILY, (Reported) Azithromycin 250 Mg Tablet, 250 MG PO DAILY Prescribed by: TOMMY ZHANG on 01/18/212027 Lisinopril 10 Mg Tablet, 10 MG PO DAILY, (Reported) Metoprolol Tartrate 25 Mg Tablet, 25 MG PO DAILY, (Reported) Prednisone 20 Mg Tab, 40 MG PO DAILY Prescribed by: TOMMY ZHANG on 01/18/212027 Patient Home Medication List Home Medication List Reviewed: Yes (SUHAIL ALCAZAR) Review of Systems Review of Systems Constitutional: No chills, No fever; other (stated he was lightheaded prior to falling) EENTM: No hearing loss, No vision loss, No mouth pain Respiratory: No cough, No hemoptysis; short of breath, wheezing (L side) Cardiovascular: chest pain (L rib pain 6/10); No edema Gastrointestinal: No abdominal pain, No constipation, No diarrhea Genitourinary: No dysuria, No frequency, No hematuria Musculoskeletal: No back pain, No joint pain Skin: No change in hair/nails; lesions (multiple small abrasions and ecchymosis to L eyebrow, L elbow, nose, upper lip, L knee) Psychiatric/Neurological: Denies Headache, Denies Numbness, Denies Paresthesia (SUHAIL ALCAZAR) All Other Systems Reviewed Negative Unless Noted: Yes (SUHAIL ALCAZAR) Past Yyrqwnv-Iyjwhe-Mdymyk Hx Patient Social History Tobacco Use?: Yes Tobacco type used: Cigarettes Smoking Status: Current Everyday Smoker Substance use?: Yes Substance type: Marijuana Substance frequency: Couple times a week Alcohol Use?: Yes Alcohol type: Beer Alcohol Frequency: Daily Pt feels they are or have been: No (SUHAIL ALCAZAR) Immunizations Up To Date Tetanus Booster (TDap): More than 5yrs First/Initial COVID19 Vaccinat: 12/13/2020 COVID19 Vaccine Eligibility Counselor: [employer] (SUHAIL ALCAZAR) Seasonal Allergies Seasonal Allergies: Yes (SUHAIL ALCAZAR) Past Medical History Surgeries: No Respiratory: No Cardiac: Yes Hypertension Neurological: No Genitourinary: No Gastrointestinal: No Musculoskeletal: No Endocrine: No HEENT: No Cancer: No Psychosocial: No Integumentary: No Blood Disorders: No (SUHAIL ALCAZAR [employer] STUDENT) Family Medical History Cardiovascular disease 19 FATHER Hypertension 19 FATHER 19 MOTHER Physical Exam Vital Signs Vital Signs - First Documented 01/18/21 17:05 Temp 37.0 Pulse 104 Resp 20 B/P (MAP) 114/79 (91) Pulse Ox 99 O2 Delivery Room Air (ALPHONSE SANCHEZ) Vital Signs Capillary Refill : Less Than 3 Seconds (SUHAIL ALCAZAR [employer] STUDENT) Height, Weight, BMI Height: 5'9.00" Weight: 145lbs. 0.0oz. 65.201599vc; 19.00 BMI Method:Stated General Appearance: No Apparent Distress, WD/WN, Thin Eyes: Bilateral Eye Normal Inspection, Bilateral Eye PERRL, Bilateral Eye EOMI HEENT: PERRL/EOMI, TMs Normal, Normal ENT Inspection, Pharynx Normal Neck: Full Range of Motion, Normal Inspection, Non Tender, Supple Respiratory: Chest Non Tender, No Accessory Muscle Use, No Respiratory Distress, Wheezing (inspiratory L lung) Cardiovascular: Regular Rate, Rhythm, No Edema, Normal Peripheral Pulses Gastrointestinal: Normal Bowel Sounds, Non Tender, Soft Rectal: Deferred Back: Normal Inspection, No CVA Tenderness, No Vertebral Tenderness Extremity: Normal Capillary Refill, Normal Inspection, Normal Range of Motion, Non Tender, No Calf Tenderness, No Pedal Edema Neurologic/Psychiatric: Alert, Oriented x3, No Motor/Sensory Deficits, Normal Mood/Affect Skin: Warm/Dry, Ecchymosis, Mottled Lymphatic: No Adenopathy (OTTONIELSUHAIL PATRICIA [employer] STUDENT) Progress/Results/Core Measures Suspected Sepsis SIRS Temperature: Pulse: 104 Respiratory Rate: 20 Blood Pressure 114 /79 Mean: 91 (OTTONIELSUHAIL PATRICIA [employer] STUDENT) Results/Orders Lab Results Laboratory Tests Test 01/18/21 17:22 Range/Units White Blood Count 10.2 4.3-11.0 10^3/uL Red Blood Count 5.23 4.30-5.52 10^6/uL Hemoglobin 16.3 13.3-17.7 g/dL Hematocrit 46 40-54 % Mean Corpuscular Volume 87 80-99 fL Mean Corpuscular Hemoglobin 31 25-34 pg Mean Corpuscular Hemoglobin Concent 36 32-36 g/dL Red Cell Distribution Width 14.0 10.0-14.5 % Platelet Count 201 130-400 10^3/uL Mean Platelet Volume 9.9 9.0-12.2 fL Immature Granulocyte % (Auto) 0 % Neutrophils (%) (Auto) 78 H 42-75 % Lymphocytes (%) (Auto) 13 12-44 % Monocytes (%) (Auto) 8 0-12 % Eosinophils (%) (Auto) 0 0-10 % Basophils (%) (Auto) 0 0-10 % Neutrophils # (Auto) 7.9 H 1.8-7.8 10^3/uL Lymphocytes # (Auto) 1.4 1.0-4.0 10^3/uL Monocytes # (Auto) 0.9 0.0-1.0 10^3/uL Eosinophils # (Auto) 0.0 0.0-0.3 10^3/uL Basophils # (Auto) 0.0 0.0-0.1 10^3/uL Immature Granulocyte # (Auto) 0.0 0.0-0.1 10^3/uL Sodium Level 127 L 135-145 MMOL/L Potassium Level 4.6 3.6-5.0 MMOL/L Chloride Level 88 L 98-107 MMOL/L Carbon Dioxide Level 25 21-32 MMOL/L Anion Gap 14 5-14 MMOL/L Blood Urea Nitrogen 8 7-18 MG/DL Creatinine 0.96 0.60-1.30 MG/DL Estimat Glomerular Filtration Rate 80 BUN/Creatinine Ratio 8 Glucose Level 89 70-105 MG/DL Calcium Level 9.0 8.5-10.1 MG/DL Corrected Calcium 9.2 8.5-10.1 MG/DL Total Bilirubin 0.7 0.1-1.0 MG/DL Aspartate Amino Transf (AST/SGOT) 232 H 5-34 U/L Alanine Aminotransferase (ALT/SGPT) 118 H 0-55 U/L Alkaline Phosphatase 128 40-136 U/L Troponin I < 0.028 <0.028 NG/ML C-Reactive Protein High Sensitivity 1.49 H 0.00-0.50 MG/DL B-Type Natriuretic Peptide 56.6 <100.0 PG/ML Total Protein 7.3 6.4-8.2 GM/DL Albumin 3.8 3.2-4.5 GM/DL Influenza Type A (RT-PCR) Not Detected Not Detecte Influenza Type B (RT-PCR) Not Detected Not Detecte SARS-CoV-2 RNA (RT-PCR) Not Detected Not Detecte (ALPHONSE SANCHEZ) My Orders Orders - ALPHONSE SANCHEZ Orthostatic Vital Signs (Adult (01/18/21 17:42) Ct Head/Cervical Spine Wo (01/18/21 17:42) Ribs/Unilateral With Chest (01/18/21 17:42) Cbc With Automated Diff (01/18/21 17:42) Comprehensive Metabolic Panel (01/18/21 17:42) Hs C Reactive Protein (01/18/21 17:42) Albuterol/Ipra Inhalation Soln (Duoneb I (01/18/21 17:45) Svn Small Volume Nebulizer (01/18/21 17:42) Continuous Ekg Monitoring (01/18/21 17:42) Ekg Tracing (01/18/21 17:42) Troponin I (01/18/21 17:42) BNP (01/18/21 17:42) Covid 19 Inhouse Test (01/18/21 17:42) Influenza A And B By Pcr (01/18/21 17:42) (ALPHONSE SANCHEZ) Medications Given in ED Current Medications Medications Dose Ordered Sig/Shelley Route Start Time Stop Time Status Last Admin Dose Admin Albuterol/ Ipratropium 3 ml ONCE ONCE INH 01/18/21 17:45 01/18/21 17:47 DC 01/18/21 18:51 3 ML (ALPHONSE SANCHEZ) Vital Signs/I&O 01/18/21 17:05 Temp 37.0 Pulse 104 Resp 20 B/P (MAP) 114/79 (91) Pulse Ox 99 O2 Delivery Room Air (ALPHONSE SANCHEZ) Vital Signs/I&O Capillary Refill : Less Than 3 Seconds (SUHAIL ALCAZAR MED STUDENT) Blood Pressure Mean: 91 Progress Note #1: Time: 19:30 Progress Note Patient was seen and examined. Exam as follows: General: Alert, oriented, no acute distress, thin HEENT: Contusion and abrasion over the left brow, pupils equally round and reactive, extraocular movements intact Neck: Normal to inspection Chest: Lungs mostly clear to auscultation but breath sounds diminished. Subtle wheezing. Tenderness to the left lower anterior chest wall with no evidence of injury by visual inspection Abdomen: Soft, nontender, nondistended Extremities: Abrasions to the left knee, no pain with range of motion, no edema Skin: Abrasions to the left brow and left knee, warm and dry, no rashes Neuro: Alert, oriented, no focal deficits CT angiogram of the chest with nonangiogram CT of the abdomen pelvis with contrast is being obtained to evaluate for injuries, sources of shortness of breath, etc. CT of the head and C-spine is also being obtained to rule out trauma. EKG showed no acute ischemic changes. Progress Note #2: Time: 20:[address] of the chest was negative for rib fractures, pulmonary embolus, or other severe pathologies. There were some left lower lung infiltrates that likely represent pneumonia or less likely pulmonary contusion. DuoNeb treatment impro belkys his breathing somewhat. He was dispensed with a take-home inhaler and educated on proper use. Azithromycin and prednisone were started in the ER. The importance of follow-up regarding his renal lesion and further work-up for his syncope was stressed. He expressed understanding. See discharge instructions. Work note was provided. (TOMMY VASQUEZ MD) ECG Initial ECG Impression Date: Jan 18, 2021 Initial ECG Impression Time: 18:58 Initial ECG Rate: 87 Initial ECG Rhythm: Normal Sinus Comment Sinus rhythm with no ischemic ST elevation or depression. There are subtle ST changes in the anterior lateral leads but no STEMI. Nonspecific intraventricular conduction delay. No axis deviation. (TOMMY VASQUEZ MD) Diagnostic Imaging Diagonstic Imaging: CT Plain Films/CT/US/NM/MRI: c-spine, head Comments CT head and cervical spine viewed by me and report reviewed. See report below: NAME: CHEPE [facility]RISTINA [facility] REC#: [id number] PT STATUS: REG ER : 1960 PHYSICIAN: ALPHONSE SANCHEZ MD ADMIT DATE: 01/18/21/ER Draft Date of Exam:01/18/21 CT HEAD/CERVICAL SPINE WO PROCEDURE: CT head and CT cervical spine without contrast. TECHNIQUE: Multiple contiguous axial images were obtained through the brain and cervical spine without the use of intravenous contrast. Sagittal and coronal reformations through the cervical spine were then performed. Auto Exposure Controls were utilized during the CT exam to meet ALARA standards for radiation dose reduction. INDICATION: 60-year-old male, shortness of breath x 1 week. Passed out earlier in the day. Hit head on the way down. Abrasions. CORRELATION STUDY: None. FINDINGS: CT HEAD: Ventricles and sulci are age-appropriate. There is no abnormal area of decreased attenuation to suggest edema. No intracranial hemorrhage. Some generalized increased density in the intracranial vessels may be owing to some hemoconcentration. No asymmetric hyperdense vascular sign. Basilar cisterns are maintained. There does appear to be some asymmetric edema, particularly in the left periorbital region. The bony calvarium is intact. Scattered areas of mild mucosal thickening. No air-fluid levels. Probable cyst or polyp in the right maxillary sinus. CT CERVICAL SPINE: Cervical spine alignment is relatively anatomic. There is slight loss of height appearing to be chronic, particularly C4, C5 and C6 vertebral bodies. No acute fracture. Various degrees of asymmetric disc space narrowing and reactive endplate osteophyte formation. Asymmetric areas of hypertrophic facet arthropathy. Odontoid is intact. Lateral mass of C1 and C2 are aligned with occipital condyles maintained. Very slight bone fragmentation at the tip of the T1 spinous process, likely of no acute significance. There is rather significant vascular calcification, particularly at the carotid bifurcation. Visualized lung apices are clear. No apical pneumothorax. IMPRESSION: CT HEAD: 1. Rather prominent left periorbital soft tissue swelling. Negative for acute traumatic intracranial abnormality. CT CERVICAL SPINE: 1. Negative for acute fracture or traumatic subluxation. Prominent multilevel cervical spondylosis with various degrees of disc space narrowing, endplate osteophyte formation and hypertrophic facet arthropathy. Dictated on workstation # [id number] Dict: 01/18/211925 Trans: 01/18/211941 [facility] [id number] Interpreted by: GI BERGER DO Diagonstic Imaging: CT Plain Films/CT/US/NM/MRI: chest, abdomen, pelvis Comments CT angiogram of the chest with nonangiogram abdomen and pelvis CT with contrast viewed by me and report reviewed. See report below: NAME: CHEPE CHRISTINA [facility] REC#: [id number] PT STATUS: REG ER : 1960 PHYSICIAN: TOMMY VASQUEZ MD ADMIT DATE: 01/18/21/ER Signed Date of Exam:01/18/21 CT ROLY CHEST/NOANG ABD-PELV W INDICATION: Fall, Chest pain, SOA CTA chest, abdomen and pelvis. Thin axial sections through the chest, abdomen and pelvis are obtained following intravenous contrast bolus. Multiplanar MIP images were reconstructed and reviewed. All CT scans use one or more of the following dose optimizing techniques: automated exposure control, MA and/or KvP adjustment based on patient size and exam type or iterative reconstruction. FINDINGS: There is some patchy infiltrates in the periphery of the posterior aspect of the left lower lobe. Lungs are otherwise clear. There is no effusion or pneumothorax. There is no hilar or mediastinal lymphadenopathy. There is no pulmonary embolus. There is aortic atherosclerosis. There is no dissection. The celiac and mesenteric arteries are both widely patent. Renal arteries are both widely patent. Inferior mesenteric artery is patent. There is calcific atherosclerosis of the aorta but no aneurysm. Iliac arteries and femoral bifurcations are unremarkable. There is fatty infiltration of the liver. The gallbladder is decompressed. Pancreas appears normal. Spleen is not enlarged. There is a 3.4 cm septated cyst about the lateral margin of the left kidney. Right kidney appears normal. Adrenals are normal. Intestines are unremarkable. Urinary bladder is normal. There is no intraperitoneal free air or free fluid. IMPRESSION: Hepatic steatosis. Aortic atherosclerosis. There is a mass in the left kidney with some internal septations. There are no prior studies available for comparison. Recommend 3-6 month follow-up. Dictated by: Dictated on workstation # [id number] Dict: 01/18/211931 Trans: 01/18/211949 [facility] [id number] Interpreted by: SARAH SPIVEY MD Electronically signed by: SARAH SPIVEY MD 01/18/211949 Diagonstic Imaging: Xray Plain Films/CT/US/NM/MRI: chest Comments Chest x-ray viewed by me and report reviewed. See report below: NAME: CHEPE CHRISTINA [facility] REC#: [id number] PT STATUS: REG ER : 1960 PHYSICIAN: TOMMY VASQUEZ MD ADMIT DATE: 01/18/21/ER Signed Date of Exam:08/04/21 CHEST 1 VIEW, AP/PA ONLY INDICATION: Chest pain. EXAMINATION: Portable chest at 7:26 p.m. Heart size and pulmonary vascularity are normal. Lungs are clear. There is no effusion or pneumothorax. IMPRESSION: Negative chest. Dictated by: Dictated on workstation # [id number] Dict: 01/18/218 Trans: 01/18/211949 [facility] [id number] Interpreted by: SARAH SPIVEY MD Electronically signed by: SARAH SPIVEY MD 01/18/211949 (TOMMY VASQUEZ MD) Departure Impression Primary Impression: Syncope Qualified Codes: R55 - Syncope and collapse Additional Impressions: Pulmonary infiltrate Dyspnea Qualified Codes: R06.00 - Dyspnea, unspecified Fall on same level Qualified Codes: W18.30XA - Fall on same level, unspecified, initial encounter Facial contusion Qualified Codes: S00.83XA - Contusion of other part of head, initial encounter Multiple abrasions Hyponatremia COPD exacerbation Renal lesion Disposition: HOME, SELF-CARE Condition: Improved Departure-Patient Inst. Decision time for Depature: 20:23 (TOMMY VASQUEZ MD) Referrals: ARNULFO ALEJANDRO DO (PCP) Primary Care Physician LARISSA MARTIN APRN (Family) Primary Care Physician Patient Instructions: COPD Exacerbation, Adult ED, Syncope (Fainting) Add. Discharge Instructions: Start reducing your smoking and work toward quitting. Drink plenty of water. Use your inhaler 2 to 4 puffs every 4 hours as needed for shortness of breath and/or wheezing. Work on tapering down your alcohol consumption. Along with reducing alcohol consumption eat a well-balanced diet. It may be beneficial to add a little bit of salt to your food as your sodium level was low on your blood work today. Avoid stopping alcohol consumption abruptly as this may cause dangerous withdrawal symptoms and possibly life-threatening seizures. Taper down on your alcohol consumption over a period of a few weeks. Complete the antibiotic as prescribed. You had some infiltrates on your chest x-ray which could be lung bruising or pneumonia. You had an abnormal appearing left kidney on your CT scan. You should have follow-up imaging to note progression or stability of this abnormal finding in a few months according to the radiologist recommendation. Please review all your imaging studies with your primary care provider in a follow-up appointment. Please follow-up with your primary care doctor next week. Call tomorrow to make an appointment. When you follow-up with your primary care provider, please also talk about referral to a head neck surgeon. Because of your syncope (passing out) further cardiac evaluation such as panel monitor, echocardiogram, and stress test may be beneficial. Please discuss this with your primary care provider. You should also take aspirin 81 mg daily for heart health until otherwise instructed. Call with questions or concerns. Return to the ER if you have worsening symptoms. All discharge instructions reviewed with patient and/or family. Voiced understanding. Scripts Prednisone (Prednisone) 20 Mg Tab 40 MG PO DAILY, #6 TAB 0 Refills Prov: TOMMY VASQUEZ MD 01/18/21 Azithromycin (Azithromycin) 250 Mg Tablet 250 MG PO DAILY, #4 TAB 0 Refills Prov: OTMMY VASQUEZ MD 01/18/21 Work/School Note: Work Release Form Date Seen in the Emergency Department: Jan 18, 2021 Return to Work: Jan 21, 2021 Other Restrictions Listed Below: Stop work and rest if lighteded or worsening shortness of breath. Restrictions: May need to use inhaler at work. Copy Copies To 1: ARNULFO ALEJANDRO JOHNNY MED STUDENT Jan 18, 2021 17:56 ALPHONSE SANCHEZ Jan 18, 2021 18:53 TOMMY VASQUEZ MD Jan 18, 2021 19:20
[2021-01-18 18:10] LABS: ALBUMIN 3.8 GM/DL (3.2-4.5); CHLORIDE 88 MMOL/L (98-107); POTASSIUM 4.6 MMOL/L (3.6-5.0); SODIUM 127 MMOL/L (135-145)
[2021-01-18 18:13] LABS: GLUCOSE 89 MG/DL (70-105); TOTAL PROTEIN 7.3 GM/DL (6.4-8.2)
[2021-01-18 18:14] LABS: CARBON DIOXIDE 25 MMOL/L (21-32)
[2021-01-18 18:15] LABS: BILIRUBIN,TOTAL 0.7 MG/DL (0.1-1.0)
[2021-01-18 18:16] LABS: ALKALINE PHOSPHATASE 128 U/L (40-136); CREATININE SERUM 0.96 MG/DL (0.60-1.30); GFR ESTIMATED 80
[2021-01-18 18:17] LABS: BUN/CREATININE RATIO 8
[2021-01-18 18:19] LABS: ALANINE AMINOTRANSFERASE 118 U/L (0-55)
[2021-01-18] MEDS ORDERED: HOLD METFORMIN - RECEIVED CONTRAST 20 ML VIAL IV SCH (18:45)
[2021-01-18] MEDS ORDERED: NS 100 ML (IVPB) BAG IV ONE (18:45)
[2021-01-18] MEDS ORDERED: IOHEXOL 350 MG/ML 100 ML (OMNIPAQUE 350) VIAL IV ONE (18:45)
[2021-01-18] MEDS ORDERED: NS IV 1000 ML 1,000 ML IV SCH (19:00)
--- NOTE | 2021-01-18 19:43 | Diagnostic Imaging Report ---
PROCEDURE: CT head and CT cervical spine without contrast. TECHNIQUE: Multiple contiguous axial images were obtained through the brain and cervical spine without the use of intravenous contrast. Sagittal and coronal reformations through the cervical spine were then performed. Auto Exposure Controls were utilized during the CT exam to meet ALARA standards for radiation dose reduction. INDICATION: 60-year-old male, shortness of breath x 1 week. Passed out earlier in the day. Hit head on the way down. Abrasions. CORRELATION STUDY: None. FINDINGS: CT HEAD: Ventricles and sulci are age-appropriate. There is no abnormal area of decreased attenuation to suggest edema. No intracranial hemorrhage. Some generalized increased density in the intracranial vessels may be owing to some hemoconcentration. No asymmetric hyperdense vascular sign. Basilar cisterns are maintained. There does appear to be some asymmetric edema, particularly in the left periorbital region. The bony calvarium is intact. Scattered areas of mild mucosal thickening. No air-fluid levels. Probable cyst or polyp in the right maxillary sinus. CT CERVICAL SPINE: Cervical spine alignment is relatively anatomic. There is slight loss of height appearing to be chronic, particularly C4, C5 and C6 vertebral bodies. No acute fracture. Various degrees of asymmetric disc space narrowing and reactive endplate osteophyte formation. Asymmetric areas of hypertrophic facet arthropathy. Odontoid is intact. Lateral mass of C1 and C2 are aligned with occipital condyles maintained. Very slight bone fragmentation at the tip of the T1 spinous process, likely of no acute significance. There is rather significant vascular calcification, particularly at the carotid bifurcation. Visualized lung apices are clear. No apical pneumothorax. IMPRESSION: CT HEAD: 1. Rather prominent left periorbital soft tissue swelling. Negative for acute traumatic intracranial abnormality. CT CERVICAL SPINE: 1. Negative for acute fracture or traumatic subluxation. Prominent multilevel cervical spondylosis with various degrees of disc space narrowing, endplate osteophyte formation and hypertrophic facet arthropathy. Dictated by: Dictated on workstation # [id number]
--- NOTE | 2021-01-18 19:47 | Diagnostic Imaging Report ---
INDICATION: Fall, Chest pain, SOA CTA chest, abdomen and pelvis. Thin axial sections through the chest, abdomen and pelvis are obtained following intravenous contrast bolus. Multiplanar MIP images were reconstructed and reviewed. All CT scans use one or more of the following dose optimizing techniques: automated exposure control, MA and/or KvP adjustment based on patient size and exam type or iterative reconstruction. FINDINGS: There is some patchy infiltrates in the periphery of the posterior aspect of the left lower lobe. Lungs are otherwise clear. There is no effusion or pneumothorax. There is no hilar or mediastinal lymphadenopathy. There is no pulmonary embolus. There is aortic atherosclerosis. There is no dissection. The celiac and mesenteric arteries are both widely patent. Renal arteries are both widely patent. Inferior mesenteric artery is patent. There is calcific atherosclerosis of the aorta but no aneurysm. Iliac arteries and femoral bifurcations are unremarkable. There is fatty infiltration of the liver. The gallbladder is decompressed. Pancreas appears normal. Spleen is not enlarged. There is a 3.4 cm septated cyst about the lateral margin of the left kidney. Right kidney appears normal. Adrenals are normal. Intestines are unremarkable. Urinary bladder is normal. There is no intraperitoneal free air or free fluid. IMPRESSION: Hepatic steatosis. Aortic atherosclerosis. There is a mass in the left kidney with some internal septations. There are no prior studies available for comparison. Recommend 3-6 month follow-up. Dictated by: Dictated on workstation # [id number]
--- NOTE | 2021-01-18 19:48 | Diagnostic Imaging Report ---
INDICATION: Chest pain. EXAMINATION: Portable chest at 7:26 p.m. Heart size and pulmonary vascularity are normal. Lungs are clear. There is no effusion or pneumothorax. IMPRESSION: Negative chest. Dictated by: Dictated on workstation # [id number]
[2021-01-18 20:07] LABS: BILIRUBIN,URINE NEGATIVE (NEGATIVE); CLARITY,URINE CLEAR; COLOR,URINE YELLOW; GLUCOSE, URINE (UA) NEGATIVE (NEGATIVE); KETONES,URINE TRACE (NEGATIVE); LEUKOCYTE ESTERASE ,URINE NEGATIVE (NEGATIVE); NITRITE,URINE NEGATIVE (NEGATIVE); PH,URINE 6.5 (5-9); PROTEIN,URINE NEGATIVE (NEGATIVE)
[2021-01-18] MEDS ORDERED: RX-ALBUTEROL INHALER 8.5 GM HFA (PROAIR) IH STA (20:10)
[2021-01-18] MEDS ORDERED: AZITHROMYCIN 250 MG TAB (ZITHROMAX) PO STA (20:10)
[2021-01-18 20:13] LABS: BACTERIA,URINE NEGATIVE /HPF; RBC,URINE RARE /HPF; SQUAMOUS EPITHELIAL CELL,UR RARE /HPF; WBC,URINE RARE /HPF
[2021-01-18] MEDS ORDERED: PRD20T PO (20:28)
[2021-01-18] MEDS ORDERED: AZIT250T12 PO (20:28)
[2021-01-18] MEDS ORDERED: predniSONE 20 MG TAB PO ONE (20:30)
[2021-01-18 20:39] VITALS: BP 138/92
== END 2021-01-18 20:40 | disposition home or self-care (01) ==
LOC: EDUNIT# 16:55 → ER 17:00
DX: S00.83XA Contusion of other part of head, initial encounter (principal); R55 Syncope and collapse; R91.8 Other nonspecific abnormal finding of lung field; R06.00 Dyspnea, unspecified; E87.1 Hypo-osmolality and hyponatremia; J44.1 Chronic obstructive pulmonary disease with (acute) exacerbation; N28.9 Disorder of kidney and ureter, unspecified; I10 Essential (primary) hypertension; F17.210 Nicotine dependence, cigarettes, uncomplicated; Z20.822 Contact with and (suspected) exposure to COVID-19; Z79.899 Other long term (current) drug therapy; Z79.82 Long term (current) use of aspirin; W18.30XA Fall on same level, unspecified, initial encounter
CPT/HCPCS: 36415; 70450; 71045; 71275; 72125; 74177; 80053; 81000; 83880; 84484; 85025; 86141; 87636; 93005; 94640